=== PATIENT | female | born 1950 | race Two or more races ===

== ENCOUNTER 2022-07-08 11:45 | Emergency (ER) | payer MEDICARE, MEDICAID ==
[2022-07-08] MEDS: Ondansetron 4 MG Tab.DIS PO ONE (12:58)
[2022-07-08] MEDS: Morphine 4 MG/ML VIAL IM ONE (12:59)
== END 2022-07-08 13:50 | disposition home or self-care (01) ==
LOC: FB.ED 11:45
DX: S32.030A Wedge compression fracture of third lumbar vertebra, initial encounter for closed fracture (principal); Z88.0 Allergy status to penicillin; Z79.899 Other long term (current) drug therapy
CPT/HCPCS: 96372; 99283; J2270; Q0162